=== PATIENT | female | born 1965 | race African-American/Black ===

== ENCOUNTER 2021-09-11 13:59 | Emergency (ER) | payer OTHER ==
[~2021-09-11] VITALS: Ht 149.9 cm; Wt 108.9 kg
[2021-09-11 14:07] VITALS: BP 149/73
[2021-09-11] MEDS ORDERED: VENTOLIN HFA 1818 GM INH (14:56)
== END 2021-09-11 15:04 | disposition home or self-care (01) ==
LOC: ER 13:59
DX: J40 Bronchitis, not specified as acute or chronic (principal); Z20.822 Contact with and (suspected) exposure to COVID-19; Z88.6 Allergy status to analgesic agent; Z88.2 Allergy status to sulfonamides